=== PATIENT | female | born 1965 | race Caucasian/White ===

== ENCOUNTER 2016-10-11 12:26 | Emergency (ER) | payer MEDICAID ==
[~2016-10-11] VITALS: Ht 170.2 cm; Wt 59.0 kg
[~2016-10-11 12:26] MED LIST: ABAC1TAB3 PO; LEVO75TA3 PO; NITR50CA27 PO
[2016-10-11 12:34] VITALS: BP 123/83; PULSE 100; RESP 16; TEMP 98; O2SAT 100
[2016-10-11] MEDS ORDERED: LIDOCAINE 2%/EPINEPHrine 1:100,000 30ML MDV INFIL ONE (12:45)
--- NOTE | 2016-10-11 12:48 | PD ---
HPI Chief Complaint: Skin Problem Time Seen by Provider: 12:44 Travel History International Travel<30 days: No Contact w/Intl Traveler<30days: No Traveled to known affect area: No History of Present Illness HPI Patient is a 51-year-old female who presents him for evaluation of a skin infection. Patient states 3 days ago she started having redness and pain to the lateral aspect of her left hip. She states she has a history of staph infections. Patient was concerned because she is HIV positive. She is compliant with antiviral medications. She denies any fever, chills, nausea, vomiting, chest pain, shortness of breath. She rates her pain 8/10 and states it sort laying on it. PFSH Past Medical History Arthritis: Yes Asthma: No Atrial Fibrillation: No Autoimmune Disease: Yes (HIV + CDC count greater than 600) Blood Disorders: No Anxiety: Yes Depression: Yes Heart Rhythm Problems: No Cancer: No Cardiovascular Problems: No High Cholesterol: No Chest Pain: No Congestive Heart Failure: No COPD: No Cerebrovascular Accident: No Diabetes: No Diminished Hearing: No Endocrine: No Gastrointestinal Disorders: No GERD: No Glaucoma: No Headaches: Yes Hepatitis: Yes (HEP C) Hiatal Hernia: No Hypertension: No Immune Disorder: Yes (HIV+) Implanted Vascular Access Dvce: No Kidney Stones: Yes Musculoskeletal: No Neurologic: No Reproductive: Yes Respiratory: No Immunizations Current: Yes Migraines: Yes Myocardial Infarction: No Pancreatitis: Yes Renal Failure: No Seizures: No Sickle Cell Disease: No Sleep Apnea: No Thyroid Disease: Yes Ulcer: No ?: Not Menopausal: Yes : 4 Para: 1 : 3 Ovarian Cysts: Yes (left side) Past Surgical History AICD: No Appendectomy: No Arteriovenous Shunt: No Cardiac Surgery: No Section: Yes (X1) Cholecystectomy: No Ear Surgery: No Endocrine Surgery: No Eye Surgery: No Genitourinary Surgery: No Insulin Pump: No Joint Replacement: No Neurologic Surgery: No Oral Surgery: No Thoracic Surgery: No Other Surgery: Yes (BREST AUGMENTATION) Social History Alcohol Use: Yes (SOCIALLY) Tobacco Use: Yes Substance Use: No (QUIT JANUARY 2011) Allergies-Medications (Allergen,Severity, Reaction): Coded Allergies: Codeine (Verified Adverse Reaction, Mild, NAUSEA, 10/11/16) pt states she is not allergic but did not want to take any narcotics *MDRO Multi-Drug Resistant Organism (Verified Adverse Reaction, Unknown, ) ESBL (urine) 07/2015 & 01/2016 MRSA 2010 Reported Meds & Prescriptions Reported Meds & Active Scripts Active Macrodantin (Nitrofurantoin Macrocrystal) 50 Mg Cap 50 Mg PO DAILY Reported Levothyroxine (Levothyroxine Sodium) 75 Mcg Tab 75 Mcg PO DAILY Triumeq (Vysgywfg-Tfusjicmxmuk-Sdikglemfx) 600-50-300 Mg Tab 1 Tab PO DAILY Hazardous agent; use appropriate precautions for handling & disposal. Review of Systems Except as stated in HPI: all other systems reviewed are Neg Musculoskeletal: Positive: Myalgias, Edema, Pain Skin: Positive Change in Pigmentation, Positive Lesions Physical Exam Narrative GENERAL: Well-nourished, well-developed patient. SKIN: Warm and dry. 7 cm area of induration noted to lateral aspect of left hip. There is a 2 cm area of fluctuance noted in the anterior of that area of induration. Moderately tender and warm on palpation. HEAD: Normocephalic. EYES: No scleral icterus. No injection or drainage. NECK: Supple, trachea midline. No JVD or lymphadenopathy. CARDIOVASCULAR: Regular rate and rhythm without murmurs, gallops, or rubs. RESPIRATORY: Breath sounds equal bilaterally. No accessory muscle use. GASTROINTESTINAL: Abdomen soft, non-tender, nondistended. MUSCULOSKELETAL: No cyanosis, or edema. Full range of motion in all 4 extremities. BACK: Nontender without obvious deformity. No CVA tenderness. Data Data Last Documented VS Vital Signs Date Time Temp Pulse Resp B/P Pulse Ox O2 Delivery O2 Flow Rate FiO2 10/11/16 12:34 98.0 100 16 123/83 100 Orders Lidocai-Epi 2%-1:100,000 Inj (Xylocaine- (10/11/16 12:45) Wound Culture And Gram Stain (10/11/16 12:39) MDM Medical Decision Making Medical Screen Exam Complete: Yes Emergency Medical Condition: Yes Interpretation(s) Vital Signs Date Time Temp Pulse Resp B/P Pulse Ox O2 Delivery O2 Flow Rate FiO2 10/11/16 12:34 98.0 100 16 123/83 100 Differential Diagnosis Cellulitis versus abscess versus contusion versus abrasion versus other Narrative Course Patient is a 51-year-old female who presents emergency department for evaluation of left hip skin infection. Symptoms have been evolving over the last 3 days, getting worse per patient's report. She is currently afebrile, her vital signs are stable. She denies any IV drug use. Please see procedure report for I&D. Wound culture ordered and pending. Patient will be placed on appeared antibiotics. Wound culture is pending. Patient tolerated procedure well. She was encouraged to return to emergency department 48 hours for packing removal. She was strict return precautions. She was educated on the signs and symptoms of worsening infection. She was encouraged to return to emergency department immediately should she experience any of the symptoms. Furthermore she was encouraged follow-up with her primary doctor. Patient verbalized understanding of these instructions. Patient stable for discharge. Procedures Procedure Narrative After the risks and benefits were discussed the following procedure was performed: INCISION AND DRAINAGE OF ABSCESS: The area was prepped and was sterilely draped. A subcutaneous wheal of 2% Xylocaine with a total number 2 mL was used to anesthetize the area. The area was properly anesthetized. A number 11 scalpel was used to make a 1.5 -cm incision across the area of the abscess. Cultures were obtained. The abscess was drained an irrigated with normal saline. Quarter inch iodoform packing was placed in the wound. Sterile dressing applied. Patient advised to have packing removed in two days. Diagnosis Primary Impression: Cellulitis and abscess of other specified site Referrals: Primary Care Physician Patient Instructions: Abscess (GEN), Abscess Follow-up (ED), Abscess Incision and Drainage (ED), General Instructions Additional Instructions: Return to emergency department in 48 hours to have packing removed Return to emergency department immediately for any new or worsening symptoms Follow-up with your doctor Complete full course of antibiotics as prescribed Do not drive or operate heavy machinery while taking narcotic pain medication Med/Other Pt SpecificInfo: Prescription(s) given Scripts Clindamycin 150 Mg [id number] Mg PO Q8HR 10 Days Ref 0 Prov:Teresa Zheng 10/11/16 Oxycodone-Acetaminophen (Percocet)5-325 mg Tab1 Tab PO Q6H PRN (PAIN) #12 TAB Ref 0 Prov:Fareed Monaco MD 10/11/16 Disposition: 01 DISCHARGE HOME Condition: Stable Teresa Zheng Oct 11, 2016 12:48
[2016-10-11] MEDS ORDERED: PERC5TAB12 PO (13:14)
[2016-10-11] MEDS ORDERED: CLIN1CAP5 PO (13:18)
[2016-11-19] MEDS ORDERED: MACR100C2 PO (11:32)
[2016-11-19] MEDS ORDERED: CARB6.5S5 RIGHT EAR (11:47)
[2016-11-19] MEDS ORDERED: LEVO75TA3 PO (11:48)
[2016-11-22] MEDS ORDERED: AUGM500T7 PO (13:34)
[2016-12-03] MEDS ORDERED: VARE1PAK3 PO (11:50)
[2016-12-10] MEDS ORDERED: DIFL150T PO (12:02)
[2016-12-23] MEDS ORDERED: CLOTR1%T TOPICAL ×2 (14:23→14:47)
[2016-12-23] MEDS ORDERED: CLOB0.055 TOPICAL ×2 (14:23→14:47)
[2016-12-23] MEDS ORDERED: IMIT100T PO ×2 (14:23→14:47)
[2016-12-23] MEDS ORDERED: AUGM875T PO (14:47)
[2016-12-23] MEDS ORDERED: LACT10SO PO (14:47)
== END 2016-10-11 13:29 | disposition home or self-care (01) ==
LOC: PHEFT 12:26
DX: L02.416 Cutaneous abscess of left lower limb (principal); L03.116 Cellulitis of left lower limb; B95.62 Methicillin resistant Staphylococcus aureus infection as the cause of diseases classified elsewhere; B20 Human immunodeficiency virus [HIV] disease
CPT/HCPCS: 10061; 86403; 87070; 87186

== ENCOUNTER 2016-10-13 14:59 | Emergency (ER) | payer MEDICAID ==
[~2016-10-13] VITALS: Ht 170.2 cm; Wt 60.5 kg
[~2016-10-13 14:59] MED LIST changes: +CLIN1CAP5 PO; +PERC5TAB12 PO
[2016-10-13 15:09] VITALS: BP 116/86; PULSE 77; RESP 16; TEMP 98; O2SAT 100
[2016-10-13] MEDS ORDERED: BACT800T5 PO (16:13)
[2016-10-13] MEDS ORDERED: TRAM50TA PO (16:13)
--- NOTE | 2016-10-13 16:14 | PD ---
HPI Chief Complaint: Wound/Suture/Staple Re-Check Time Seen by Provider: 16:06 Travel History International Travel<30 days: No Contact w/Intl Traveler<30days: No Traveled to known affect area: No History of Present Illness HPI Patient is a 51-year-old female who presents emergency for reevaluation after an I&D performed 2 days ago. Patient presented with left hip cellulitis/abscess , and I&D was performed. She has been compliant with antibiotics. She denies any fever, chills, nausea, vomiting, shortness of breath or chest pain. PFSH Past Medical History Arthritis: Yes Asthma: No Atrial Fibrillation: No Autoimmune Disease: Yes (HIV + CDC count greater than 600) Blood Disorders: No Anxiety: Yes Depression: Yes Heart Rhythm Problems: No Cancer: No Cardiovascular Problems: No High Cholesterol: No Chest Pain: No Congestive Heart Failure: No COPD: No Cerebrovascular Accident: No Diabetes: No Diminished Hearing: No Endocrine: No Gastrointestinal Disorders: No GERD: No Glaucoma: No Headaches: Yes Hepatitis: Yes (HEP C) Hiatal Hernia: No Hypertension: No Immune Disorder: Yes (HIV+) Implanted Vascular Access Dvce: No Kidney Stones: Yes Musculoskeletal: No Neurologic: No Reproductive: Yes Respiratory: No Immunizations Current: Yes Migraines: Yes Myocardial Infarction: No Pancreatitis: Yes Renal Failure: No Seizures: No Sickle Cell Disease: No Sleep Apnea: No Thyroid Disease: Yes Ulcer: No Tetanus Vaccination: < 5 Years Influenza Vaccination: Yes ?: Not Menopausal: Yes : 4 Para: 1 : 3 Ovarian Cysts: Yes (left side) Past Surgical History AICD: No Appendectomy: No Arteriovenous Shunt: No Cardiac Surgery: No Section: Yes (X1) Cholecystectomy: No Ear Surgery: No Endocrine Surgery: No Eye Surgery: No Genitourinary Surgery: No Insulin Pump: No Joint Replacement: No Neurologic Surgery: No Oral Surgery: No Thoracic Surgery: No Other Surgery: Yes (BREST AUGMENTATION) Social History Alcohol Use: Yes (SOCIALLY) Tobacco Use: Yes Substance Use: No (QUIT JANUARY 2011) Allergies-Medications (Allergen,Severity, Reaction): Coded Allergies: Codeine (Verified Adverse Reaction, Mild, NAUSEA, 10/13/16) pt states she is not allergic but did not want to take any narcotics *MDRO Multi-Drug Resistant Organism (Verified Adverse Reaction, Unknown, ) ESBL (urine) 07/2015 & 01/2016 MRSA 2010 Reported Meds & Prescriptions Reported Meds & Active Scripts Active Clindamycin (Clindamycin HCl) 150 Mg Cap 300 Mg PO Q8HR 10 Days Percocet (Oxycodone-Acetaminophen) 5-325 mg Tab 1 Tab PO Q6H PRN Macrodantin (Nitrofurantoin Macrocrystal) 50 Mg Cap 50 Mg PO DAILY Reported Levothyroxine (Levothyroxine Sodium) 75 Mcg Tab 75 Mcg PO DAILY Triumeq (Hubhhuub-Dyeroajtonyd-Txwbshlqmv) 600-50-300 Mg Tab 1 Tab PO DAILY Hazardous agent; use appropriate precautions for handling & disposal. Review of Systems Except as stated in HPI: all other systems reviewed are Neg Musculoskeletal: Positive: Myalgias Physical Exam Narrative GENERAL: Well-nourished, well-developed patient. SKIN: Warm and dry. Incision to left hip, mildly erythematous, marked borders show marked regression of erythema from prior examination. Packing was in place. HEAD: Normocephalic. EYES: No scleral icterus. No injection or drainage. NECK: Supple, trachea midline. No JVD or lymphadenopathy. CARDIOVASCULAR: Regular rate and rhythm without murmurs, gallops, or rubs. RESPIRATORY: Breath sounds equal bilaterally. No accessory muscle use. GASTROINTESTINAL: Abdomen soft, non-tender, nondistended. MUSCULOSKELETAL: No cyanosis, or edema. BACK: Nontender without obvious deformity. No CVA tenderness. Data Data Last Documented VS Vital Signs Date Time Temp Pulse Resp B/P Pulse Ox O2 Delivery O2 Flow Rate FiO2 10/13/16 15:16 16 10/13/16 15:09 98.0 77 116/86 100 [facility] Medical Decision Making Medical Screen Exam Complete: Yes Emergency Medical Condition: Yes Interpretation(s) Vital Signs Date Time Temp Pulse Resp B/P Pulse Ox O2 Delivery O2 Flow Rate FiO2 10/13/16 15:16 16 10/13/16 15:09 98.0 77 16 116/86 100 Differential Diagnosis Cellulitis versus abscess versus sepsis versus other Narrative Course Patient is a 51-year-old male who presented to emergency from for reevaluation after an I&D was performed 2 days ago for an abscess to her left hip. Signs are stable, she's been compliant with antibiotic therapy however upon review of the microbiology report the bacteria is resistant to clindamycin which she was previously prescribed. At this time patient will be switched to Bactrim DS which show susceptibility. Packing was removed without any complications. Patient tolerated well. The I&D alone improved patient's symptoms. With change of antibiotic she should see complete resolution. Patient was advised however to return to emergency department if her symptoms changed or worsened. She verbalized understanding of these instructions. Patient stable for discharge. Diagnosis Primary Impression: Cellulitis and abscess of other specified site Referrals: Primary Care Physician Patient Instructions: Abscess Follow-up (ED), Abscess Incision and Drainage (ED ), General Instructions Additional Instructions: Follow-up with her primary doctor Return to emergency department immediately for any new or worsening symptoms Antibiotics have been changed to Bactrim DS. Discontinue use of clindamycin Do not drive or operate heavy machinery while taking narcotic pain medication Med/Other Pt SpecificInfo: Prescription(s) given Scripts Tramadol 50 Mg Tab50 Mg PO Q6H PRN (PAIN) #10 TAB Ref 0 Prov:Suyapa Le MD 10/13/16 Sulfamethoxazole-Trimethoprim (Bactrim DS)800-160 Mg Tab1 Tab PO BID #20 TAB Ref 0 Prov:Teresa Zheng 10/13/16 Disposition: 01 DISCHARGE HOME Condition: Stable Teresa Zheng Oct 13, 2016 16:14
[2016-10-13] MEDS ORDERED: SULFAMETHOXAZOLE-TRIMETHOPRIM DS 800-160 MG TAB PO ONE (16:15)
[2016-11-19] MEDS ORDERED: MACR100C2 PO (11:32)
[2016-11-19] MEDS ORDERED: CARB6.5S5 RIGHT EAR (11:47)
[2016-11-19] MEDS ORDERED: LEVO75TA3 PO (11:48)
[2016-11-22] MEDS ORDERED: AUGM500T7 PO (13:34)
[2016-12-03] MEDS ORDERED: VARE1PAK3 PO (11:50)
[2016-12-10] MEDS ORDERED: DIFL150T PO (12:02)
[2016-12-23] MEDS ORDERED: IMIT100T PO ×2 (14:23→14:47)
[2016-12-23] MEDS ORDERED: CLOTR1%T TOPICAL ×2 (14:23→14:47)
[2016-12-23] MEDS ORDERED: CLOB0.055 TOPICAL ×2 (14:23→14:47)
[2016-12-23] MEDS ORDERED: AUGM875T PO (14:47)
[2016-12-23] MEDS ORDERED: LACT10SO PO (14:47)
== END 2016-10-13 16:19 | disposition home or self-care (01) ==
LOC: PHEFT 14:59
DX: L02.416 Cutaneous abscess of left lower limb (principal); Z48.00 Encounter for change or removal of nonsurgical wound dressing; Z79.899 Other long term (current) drug therapy; Z21 Asymptomatic human immunodeficiency virus [HIV] infection status; B19.20 Unspecified viral hepatitis C without hepatic coma; Z72.0 Tobacco use
CPT/HCPCS: 99284

== ENCOUNTER 2016-12-20 12:14 | Emergency (ER) | payer MEDICAID ==
[~2016-12-20] VITALS: Ht 170.2 cm; Wt 60.0 kg
[~2016-12-20 12:14] MED LIST changes: -CLIN1CAP5 PO; +DIFL150T PO; -PERC5TAB12 PO; +VARE1PAK3 PO
[2016-12-20 12:18] VITALS: BP 104/71; PULSE 73; RESP 16; TEMP 98.3; O2SAT 100
[2016-12-20] MEDS ORDERED: BACT800T5 PO (12:31)
--- NOTE | 2016-12-20 12:33 | PD ---
HPI Chief Complaint: Skin Problem Time Seen by Provider: 12:26 Travel History International Travel<30 days: No Contact w/Intl Traveler<30days: No Traveled to known affect area: No History of Present Illness HPI This patient is developed some tiny papules on a few parts of her skin and wants antibiotics to cover staph. She's had staph skin infections before. She doesn't wanted to get bad where she needs incision and drainage. No fever. Symptoms severity is mild PFSH Past Medical History Hx Anticoagulant Therapy: No Arthritis: Yes Asthma: No Atrial Fibrillation: No Autoimmune Disease: Yes (HIV + CDC count greater than 600) Blood Disorders: No Anxiety: Yes Depression: Yes Heart Rhythm Problems: No Cancer: No Cardiovascular Problems: No High Cholesterol: No Chest Pain: No Congestive Heart Failure: No COPD: No Cerebrovascular Accident: No Diabetes: No Diminished Hearing: No Endocrine: No Gastrointestinal Disorders: No GERD: No Glaucoma: No Headaches: Yes Hepatitis: Yes (HEP C) Hiatal Hernia: No Hypertension: No Immune Disorder: Yes (HIV+) Implanted Vascular Access Dvce: No Kidney Stones: Yes Musculoskeletal: No Neurologic: No Reproductive: Yes Respiratory: No Immunizations Current: Yes Migraines: Yes Myocardial Infarction: No Pancreatitis: Yes Renal Failure: No Seizures: No Sickle Cell Disease: No Sleep Apnea: No Thyroid Disease: Yes Ulcer: No ?: Not Menopausal: Yes : 4 Para: 1 : 3 Ovarian Cysts: Yes (left side) Past Surgical History AICD: No Appendectomy: No Arteriovenous Shunt: No Cardiac Surgery: No Section: Yes (X1) Cholecystectomy: No Ear Surgery: No Endocrine Surgery: No Eye Surgery: No Genitourinary Surgery: No Insulin Pump: No Joint Replacement: No Neurologic Surgery: No Oral Surgery: No Thoracic Surgery: No Other Surgery: Yes (BREST AUGMENTATION) Social History Alcohol Use: Yes (SOCIALLY) Tobacco Use: Yes Substance Use: No (QUIT JANUARY 2011) Allergies-Medications (Allergen,Severity, Reaction): Coded Allergies: Codeine (Verified Adverse Reaction, Mild, NAUSEA, 12/20/16) pt states she is not allergic but did not want to take any narcotics *MDRO Multi-Drug Resistant Organism (Verified Adverse Reaction, Unknown, ) ESBL (urine) 07/2015 & 01/2016 MRSA (hip-10/11/16) & (hand-11/14/10) Reported Meds & Prescriptions Reported Meds & Active Scripts Active Diflucan (Fluconazole) 150 Mg Tab 150 Mg PO ONCE Chantix Starting Month Elroy (Varenicline) 0.5 mg X 11 & 1 mg X 42 Pack 1 Tab PO DIRECTED Levothyroxine (Levothyroxine Sodium) 75 Mcg Tab 75 Mcg PO DAILY Macrodantin (Nitrofurantoin Macrocrystal) 50 Mg Cap 50 Mg PO DAILY Reported Triumeq (Qmiiotnm-Tvpfpxxxnncf-Erwwugpolr) 600-50-300 Mg Tab 1 Tab PO DAILY Hazardous agent; use appropriate precautions for handling & disposal. Review of Systems General / Constitutional: No: Fever HENT: No: Headaches Cardiovascular: No: Chest Pain or Discomfort Physical Exam Narrative NECK: Symmetrical appearance, midline trachea. No mass or crepitus. Thyroid without enlargement, tenderness, or mass. Psych: Normal mood and affect. Normal insight and judgment. SKIN: Focused skin assessment reveals no rash or ulcers. Skin is warm and dry. Palpation shows no induration. There are a few tiny little skin colored papules that the patient points out. They look very minimal Data Data Last Documented VS Vital Signs Date Time Temp Pulse Resp B/P Pulse Ox O2 Delivery O2 Flow Rate FiO2 12/20/16 12:18 98.3 73 16 104/71 100 MDM Medical Decision Making Medical Screen Exam Complete: Yes Emergency Medical Condition: Yes Medical Record Reviewed: Yes Differential Diagnosis Papules, pustules, boil Narrative Course I have reviewed the patient's electronic medical record. I wrote patient 5 days of Bactrim DS. Recommend she follow her primary physician. Diagnosis Primary Impression: Skin papules, generalized Additional Instructions: The patient was advised to follow up with their physician and return if they worsen. Med/Other Pt SpecificInfo: Prescription(s) given Scripts Sulfamethoxazole-Trimethoprim (Bactrim DS)800-160 Mg Tab1 Tab PO BID #10 TAB Ref 0 Prov:Aneudy Hyde MD 12/20/16 Disposition: 01 DISCHARGE HOME Condition: Stable Aneudy yHde MD Dec 20, 2016 12:33
[2016-12-23] MEDS ORDERED: CLOTR1%T TOPICAL ×2 (14:23→14:47)
[2016-12-23] MEDS ORDERED: CLOB0.055 TOPICAL ×2 (14:23→14:47)
[2016-12-23] MEDS ORDERED: IMIT100T PO ×2 (14:23→14:47)
[2016-12-23] MEDS ORDERED: LACT10SO PO (14:47)
[2016-12-23] MEDS ORDERED: AUGM875T PO (14:47)
== END 2016-12-20 12:50 | disposition home or self-care (01) ==
LOC: PHED 12:14
DX: R23.8 Other skin changes (principal); B19.20 Unspecified viral hepatitis C without hepatic coma; B20 Human immunodeficiency virus [HIV] disease; Z87.442 Personal history of urinary calculi; Z72.0 Tobacco use
CPT/HCPCS: 99283

== ENCOUNTER 2017-01-28 12:33 | Emergency (ER) | payer MEDICAID ==
[~2017-01-28] VITALS: Ht 170.2 cm; Wt 63.2 kg
[~2017-01-28 12:33] MED LIST changes: +AUGM875T PO; +BACT800T5 PO; +CLOB0.055 TOPICAL; +CLOTR1%T TOPICAL; -DIFL150T PO; +IMIT100T PO; +LACT10SO PO; -NITR50CA27 PO; -VARE1PAK3 PO
[2017-01-28 12:39] VITALS: BP 131/75; PULSE 78; RESP 16; TEMP 98.1; O2SAT 100
[2017-01-28] MEDS ORDERED: NITR50CA27 PO (12:52)
[2017-01-28] MEDS ORDERED: ROBA750T PO (13:04)
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
== END 2017-01-28 13:20 | disposition home or self-care (01) ==
LOC: PHEFT 12:33
DX: M25.512 Pain in left shoulder (principal); R53.1 Weakness; M19.90 Unspecified osteoarthritis, unspecified site; F41.9 Anxiety disorder, unspecified; F32.9 Major depressive disorder, single episode, unspecified; K85.90 Acute pancreatitis without necrosis or infection, unspecified; F17.200 Nicotine dependence, unspecified, uncomplicated; Z21 Asymptomatic human immunodeficiency virus [HIV] infection status; Z79.899 Other long term (current) drug therapy
CPT/HCPCS: 99283

== ENCOUNTER 2017-10-23 15:29 | Emergency (ER) | payer MEDICAID ==
[~2017-10-23] VITALS: Ht 167.6 cm; Wt 60.0 kg
[~2017-10-23 15:29] MED LIST changes: -AUGM875T PO; -BACT800T5 PO; -CLOB0.055 TOPICAL; -CLOTR1%T TOPICAL; -IMIT100T PO; -LACT10SO PO; +NITR50CA27 PO
[2017-10-23 15:33] VITALS: BP 136/72; PULSE 70; RESP 16; TEMP 98.3; O2SAT 99
--- NOTE | 2017-10-23 15:58 | PD ---
HPI Chief Complaint: Musculoskeletal Complaint Time Seen by Provider: 15:39 Travel History International Travel<30 days: No Contact w/Intl Traveler<30days: No Traveled to known affect area: No History of Present Illness HPI 52-year-old female presents to the emergency room for evaluation of right anterior rib pain that started yesterday. Patient states she has had a mildly productive cough for the past week. The cough seems to be clearing up and is now dry. She thinks she may have broken a rib from coughing so hard. She has had broken ribs in the past and this feels the same. Pain is worsened with deep breathing and coughing. Denies any other chest pain or shortness of breath. She had chills at onset but has not had fevers or chills since then. No associated congestion. Occasional right ear pain. She has not been taking anything for her symptoms. History of hypothyroidism. PFSH Past Medical History Hx Anticoagulant Therapy: No Arthritis: Yes Asthma: No Atrial Fibrillation: No Autoimmune Disease: Yes (HIV ) Blood Disorders: No Anxiety: Yes Depression: Yes Heart Rhythm Problems: No Cancer: No Cardiovascular Problems: No High Cholesterol: No Chest Pain: No Congestive Heart Failure: No Cirrhosis: Yes COPD: No Cerebrovascular Accident: No Diabetes: No Diminished Hearing: No Endocrine: No Gastrointestinal Disorders: No GERD: No Glaucoma: No Genitourinary: Yes (frequent uti's, hx bladder spasms, states self caths several times daily) Headaches: Yes Hepatitis: Yes (HEP C, gone now) Hiatal Hernia: No Heparin Induced Thrombocytopen: No Hypertension: No Immune Disorder: Yes (HIV+) Implanted Vascular Access Dvce: No Kidney Stones: Yes Musculoskeletal: No Neurologic: No Psychiatric: Yes Reproductive: Yes Respiratory: No Immunizations Current: Yes Migraines: Yes Myocardial Infarction: No Pancreatitis: Yes Radiation Therapy: Yes ([place] FOR HEP C) Renal Failure: No Seizures: No Sickle Cell Disease: No Sleep Apnea: No Thyroid Disease: Yes Ulcer: No ?: Not Menopausal: Yes : 4 Para: 1 : 3 Ovarian Cysts: Yes (left side) Past Surgical History AICD: No Appendectomy: No Arteriovenous Shunt: No Cardiac Surgery: No Section: Yes (X1) Cholecystectomy: No Ear Surgery: No Endocrine Surgery: No Eye Surgery: No Genitourinary Surgery: No Insulin Pump: No Joint Replacement: No Neurologic Surgery: No Oral Surgery: No Thoracic Surgery: No Other Surgery: Yes (BREAST AUGMENTATION) Social History Alcohol Use: No Tobacco Use: Yes (1/2PPD) Substance Use: No (QUIT JANUARY 2011) Allergies-Medications (Allergen,Severity, Reaction): Coded Allergies: codeine (Verified Adverse Reaction, Mild, NAUSEA, 10/23/17) pt states she is not allergic but did not want to take any narcotics *MDRO Multi-Drug Resistant Organism (Verified Adverse Reaction, Unknown, ) 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 Review of Systems Except as stated in HPI: all other systems reviewed are Neg Physical Exam Narrative GENERAL: Well-nourished, well-developed female no acute distress. Afebrile. Ambulatory. SKIN: Focused skin assessment warm/dry. HEAD: Normocephalic. EYES: No scleral icterus. No injection or drainage. ENT: Mucosa pink and moist. Mild erythema without exudates. No uvular edema. No uvular, palatal, or tonsillar deviation. Airway patent. Nasal turbinates appear normal without nasal blood, purulent drainage or septal hematoma. EARS: Bilateral pinnae and external canals appear within normal limits. Bilateral tympanic membranes without erythema, dullness or perforation. NECK: Supple, trachea midline. No JVD or lymphadenopathy. CARDIOVASCULAR: Regular rate and rhythm without murmurs, gallops, or rubs. RESPIRATORY: Breath sounds equal bilaterally. No accessory muscle use. No crackles, rales, wheezes, or rhonchi. CHEST: Nontender throughout without deformity or crepitus. No retractions or use of accessory muscles. Data Data Last Documented VS Vital Signs Date Time Temp Pulse Resp B/P (MAP) Pulse Ox O2 Delivery O2 Flow Rate FiO2 10/23/17 15:43 16 2/15/18 15:33 98.3 70 136/72 (93) 99 Orders Orders Ribs, Uni (W/Exp Cxr-Min 3vw) (10/23/17 ) [facility] Medical Decision Making Medical Screen Exam Complete: Yes Emergency Medical Condition: Yes Medical Record Reviewed: Yes Differential Diagnosis Fracture, strain, sprain, contusion, costochondritis, pneumonia, bronchitis Narrative Course 52-year-old female presents to the emergency room for evaluation of right anterior chest wall pain for the past 2 days. Patient has had a severe cough for the past week. States she thinks she broke her rib from coughing so hard. Pain is worsened with deep breathing or coughing. No pain at rest. Physical exam is reassuring. There is tenderness to palpation of the right anterior rib #4. No crepitus. Lung sounds clear and equal bilaterally. 99% on room air. Chest x-ray shows nondisplaced rib fracture of the 10th rib on the right side; no cardiopulmonary disease. Patient is nontender at that area. I suspect this is an old rib fracture. She was encouraged to take deep breaths to avoid pneumonia and take ibuprofen for pain. Told to follow-up with primary care physician or return for worsening symptoms. She understands and agrees to plan. Diagnosis Primary Impression: Contusion of rib on right side Qualified Codes: S20.211A - Contusion of right front wall of thorax, initial encounter Referrals: Primary Care Physician Additional Instructions: Rest and drink plenty of fluids. Take ibuprofen with food as directed, as needed for pain. Apply ice to the affected area for 20 minutes at a time, as needed for pain and swelling. Follow-up with a primary care physician. Return to the emergency room for worsening symptoms. Disposition: 01 DISCHARGE HOME Condition: Stable Petty Lennon Oct 23, 2017 15:58
--- NOTE | 2017-10-23 17:00 | RADRPT ---
EXAM DATE/TIME: 10/23/2017 15:54 [facility] COMPARISON: No previous studies available for comparison. INDICATIONS : Patient has right side rib pain after having a persistant cough. MEDICAL HISTORY : Previous right rib fractures. SURGICAL HISTORY : Breast augmentation. ENCOUNTER: Initial ACUITY: 1 week PAIN SCORE: 9/10 LOCATION: Bilateral chest FINDINGS: Multiple views of the right ribs were performed. A nondisplaced fracture is identified through the an terolateral margin of the right 10th rib. No destructive lesions or areas of periosteal thickening ar e seen. Expiratory view of the chest is negative for pneumothorax. The mediastinal structures are m idline. CONCLUSION: Nondisplaced fracture of the right 10th rib. No acute cardiopulmonary process Carlos Smith MD on October 23, 2017 at 16:57 Board Certified Radiologist. This report was verified electronically.
== END 2017-10-23 17:25 | disposition home or self-care (01) ==
LOC: PHEFT 15:29
DX: S20.211A Contusion of right front wall of thorax, initial encounter (principal); B20 Human immunodeficiency virus [HIV] disease; M19.90 Unspecified osteoarthritis, unspecified site; K74.60 Unspecified cirrhosis of liver; E03.9 Hypothyroidism, unspecified; F32.9 Major depressive disorder, single episode, unspecified; F41.9 Anxiety disorder, unspecified; F17.210 Nicotine dependence, cigarettes, uncomplicated; Z86.19 Personal history of other infectious and parasitic diseases; Z87.442 Personal history of urinary calculi; Z88.5 Allergy status to narcotic agent; Z79.899 Other long term (current) drug therapy
CPT/HCPCS: 71101; 99283

== ENCOUNTER 2018-01-04 06:58 | Emergency (ER) | payer SELFPAY ==
[~2018-01-04] VITALS: Ht 167.6 cm; Wt 60.7 kg
[2018-01-04 07:05] VITALS: BP 117/75; PULSE 89; RESP 16; TEMP 98.5; O2SAT 100
[2018-01-04] MEDS ORDERED: CEPH-460 PO (07:23)
[2018-01-04] MEDS ORDERED: BACT800T5 PO (07:23)
--- NOTE | 2018-01-04 07:23 | PD ---
HPI Chief Complaint: Skin Problem Time Seen by Provider: 07:00 Travel History International Travel<30 days: No Contact w/Intl Traveler<30days: No Traveled to known affect area: No History of Present Illness HPI 52 yo F c/o L gluteus pain, swelling, erythema x 1-2 days [place]. erythema about the L chest wall also noted. Swelling of the right submandibular lymph node is also noted. The patient reports history of HIV. Her last CD4 count was over 600 she states. Her viral load is nondetectable. She is compliant with antiretroviral medications. Associated symptoms include some pain with swallowing due. No difficulty breathing. PFSH Past Medical History Hx Anticoagulant Therapy: No Arthritis: Yes Asthma: No Atrial Fibrillation: No Autoimmune Disease: Yes (HIV ) Blood Disorders: No Anxiety: Yes Depression: Yes Heart Rhythm Problems: No Cancer: No Cardiovascular Problems: No High Cholesterol: No Chest Pain: No Congestive Heart Failure: No Cirrhosis: Yes COPD: No Cerebrovascular Accident: No Diabetes: No Diminished Hearing: No Endocrine: No Gastrointestinal Disorders: No GERD: No Glaucoma: No Genitourinary: Yes (frequent uti's, hx bladder spasms, states self caths several times daily) Headaches: Yes Hepatitis: Yes (HEP C, gone now) Hiatal Hernia: No Heparin Induced Thrombocytopen: No Hypertension: No Immune Disorder: Yes (HIV+) Implanted Vascular Access Dvce: No Kidney Stones: Yes Musculoskeletal: No Neurologic: No Psychiatric: Yes Reproductive: Yes Respiratory: No Immunizations Current: Yes Migraines: Yes Myocardial Infarction: No Pancreatitis: Yes Radiation Therapy: Yes ([place] FOR HEP C) Renal Failure: No Seizures: No Sickle Cell Disease: No Sleep Apnea: No Thyroid Disease: Yes Ulcer: No ?: Not Menopausal: Yes : 4 Para: 1 : 3 Ovarian Cysts: Yes (left side) Past Surgical History AICD: No Appendectomy: No Arteriovenous Shunt: No Cardiac Surgery: No Section: Yes (X1) Cholecystectomy: No Ear Surgery: No Endocrine Surgery: No Eye Surgery: No Genitourinary Surgery: No Insulin Pump: No Joint Replacement: No Neurologic Surgery: No Oral Surgery: No Thoracic Surgery: No Other Surgery: Yes (BREAST AUGMENTATION) Social History Alcohol Use: No Tobacco Use: Yes (1/2PPD) Substance Use: No (QUIT JANUARY 2011) Allergies-Medications (Allergen,Severity, Reaction): Coded Allergies: codeine (Verified Adverse Reaction, Mild, NAUSEA, 01/04/18) pt states she is not allergic but did not want to take any narcotics *MDRO Multi-Drug Resistant Organism (Verified Adverse Reaction, Unknown, ) ESBL (urine) 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 Review of Systems General / Constitutional: No: Fever Eyes: No: Diploplia HENT: No: Headaches Cardiovascular: No: Chest Pain or Discomfort Respiratory: No: Cough Physical Exam Narrative GENERAL: 52-year-old female pleasant well-nourished well-developed distress Vital Signs Date Time Temp Pulse Resp B/P (MAP) Pulse Ox O2 Delivery O2 Flow Rate FiO2 01/04/18 07:05 98.5 89 16 117/75 (89) 100 SKIN: Warm and dry. There is approximately 3 cm round area of erythema induration and tenderness overlying the region of the left gluteus consistent with cellulitis. There is no fluctuance. Signed minimal left sided and drainage. NECK: There is minimal tenderness in the submandibular left node on the left side without induration or suggestion of Jose F's angina. HEAD: Normocephalic. EYES: No scleral icterus. No injection or drainage. CARDIOVASCULAR: Regular rate and rhythm without murmurs, gallops, or rubs. RESPIRATORY: Breath sounds equal bilaterally. No accessory muscle use. GASTROINTESTINAL: Abdomen soft, non-tender, nondistended. MUSCULOSKELETAL: No cyanosis, or edema. BACK: Nontender without obvious deformity. No CVA tenderness. Data Data Last Documented VS Vital Signs Date Time Temp Pulse Resp B/P (MAP) Pulse Ox O2 Delivery O2 Flow Rate FiO2 01/04/18 07:05 98.5 89 16 117/75 (89) 100 Orders Orders Sulfamet-Trimeth Ds 800-160 Mg (Bactrim (01/04/18 07:30) Cephalexin (Keflex) (01/04/18 07:30) MDM Medical Decision Making Medical Screen Exam Complete: Yes Emergency Medical Condition: Yes Medical Record Reviewed: Yes Differential Diagnosis Cellulitis, abscess, pharyngitis Narrative Course Patient is HIV with the CD4 count of over 600 and other words immunocompetent. Scripts as below for treatment of cellulitis. Tender right neck lymph node is of indeterminate significant with a normal oropharyngeal exam otherwise however Keflex Bactrim likely cover any potential sharon. Diagnosis Primary Impression: Cellulitis Qualified Codes: L03.317 - Cellulitis of buttock Referrals: Primary Care Physician call for appointment Med/Other Pt SpecificInfo: Prescription(s) given Scripts Sulfamethoxazole-Trimethoprim (Bactrim DS) 800-160 Mg Tab 1 TAB PO BID for Infection, #20 TAB 0 Refills Prov: Rojas Holt MD 01/04/18 Cephalexin (Keflex) 500 Mg Cap 500 MG PO Q8H for Infection, #30 CAP 0 Refills Prov: Rojas Holt MD 01/04/18 Disposition: 01 DISCHARGE HOME Condition: Stable Rojas Holt MD Jan 04, 2018 07:23
[2018-01-04] MEDS ORDERED: CEPHALEXIN MONOHYDRATE 500 MG CAP PO ONE (07:30)
[2018-01-04] MEDS ORDERED: SULFAMETHOXAZOLE-TRIMETHOPRIM DS 800-160 MG TAB PO ONE (07:30)
== END 2018-01-04 07:35 | disposition home or self-care (01) ==
LOC: PHED 06:58
DX: L03.317 Cellulitis of buttock (principal); Z21 Asymptomatic human immunodeficiency virus [HIV] infection status; F41.9 Anxiety disorder, unspecified; F32.9 Major depressive disorder, single episode, unspecified; M19.90 Unspecified osteoarthritis, unspecified site; K74.60 Unspecified cirrhosis of liver; Z86.19 Personal history of other infectious and parasitic diseases; Z87.442 Personal history of urinary calculi; Z87.19 Personal history of other diseases of the digestive system
CPT/HCPCS: 99283

== ENCOUNTER 2018-01-26 17:02 | Emergency (ER) | payer OTHER ==
[~2018-01-26] VITALS: Ht 170.2 cm; Wt 62.2 kg
[~2018-01-26 17:02] MED LIST changes: +BACT800T5 PO; +CEPH-460 PO
[2018-01-26 17:03] VITALS: BP 111/69; PULSE 76; RESP 18; TEMP 98.3
--- NOTE | 2018-01-26 17:49 | PD ---
HPI Chief Complaint: Edema Time Seen by Provider: 17:31 Travel History International Travel<30 days: No Contact w/Intl Traveler<30days: No Traveled to known affect area: No History of Present Illness HPI 52yo F with PMH of HIV on medication CD 4 count 600 here with c/o bilateral ankle swelling. Said she has been standing a lot lately and has swelling. Denies any calf pain, trauma, fall, fever, chest pain, sob, n/v, abdominal pain , focal weakness or numbness. Pt said she had slight dizziness when she got up from standing but that had resolved. PFSH Past Medical History Hx Anticoagulant Therapy: No Arthritis: Yes Asthma: No Atrial Fibrillation: No Autoimmune Disease: Yes (HIV ) Blood Disorders: No Anxiety: Yes Depression: Yes Heart Rhythm Problems: No Cancer: No Cardiovascular Problems: No High Cholesterol: No Chest Pain: No Congestive Heart Failure: No Cirrhosis: Yes COPD: No Cerebrovascular Accident: No Diabetes: No Diminished Hearing: No Endocrine: No Gastrointestinal Disorders: No GERD: No Glaucoma: No Genitourinary: Yes (frequent uti's, hx bladder spasms, states self caths several times daily) Headaches: Yes Hepatitis: Yes (HEP C, gone now) Hiatal Hernia: No Heparin Induced Thrombocytopen: No Hypertension: No Immune Disorder: Yes (HIV+) Implanted Vascular Access Dvce: No Kidney Stones: Yes Musculoskeletal: No Neurologic: No Psychiatric: Yes Reproductive: Yes Respiratory: No Immunizations Current: Yes Migraines: Yes Myocardial Infarction: No Pancreatitis: Yes Radiation Therapy: Yes ([place] FOR HEP C) Renal Failure: No Seizures: No Sickle Cell Disease: No Sleep Apnea: No Thyroid Disease: Yes Ulcer: No Menopausal: Yes : 4 Para: 1 : 3 Ovarian Cysts: Yes (left side) Past Surgical History AICD: No Appendectomy: No Arteriovenous Shunt: No Cardiac Surgery: No Section: Yes (X1) Cholecystectomy: No Ear Surgery: No Endocrine Surgery: No Eye Surgery: No Genitourinary Surgery: No Gynecologic Surgery: Yes () Insulin Pump: No Joint Replacement: No Neurologic Surgery: No Oral Surgery: No Thoracic Surgery: No Other Surgery: Yes (BREAST AUGMENTATION) Social History Alcohol Use: No Tobacco Use: Yes (1/2PPD) Substance Use: No (QUIT JANUARY 2011) Allergies-Medications (Allergen,Severity, Reaction): Coded Allergies: codeine (Verified Adverse Reaction, Mild, NAUSEA, 01/26/18) pt states she is not allergic but did not want to take any narcotics *MDRO Multi-Drug Resistant Organism (Verified Adverse Reaction, Unknown, ) ESBL (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 Review of Systems Except as stated in HPI: all other systems reviewed are Neg Physical Exam Narrative GENERAL: 52yo F not in distress. SKIN: Focused skin assessment warm/dry. HEAD: Atraumatic. Normocephalic. EYES: Pupils equal and round. No scleral icterus. No injection or drainage. ENT: No nasal bleeding or discharge. Mucous membranes pink and moist. NECK: Trachea midline. No JVD. CARDIOVASCULAR: Regular rate and rhythm. No murmur appreciated. RESPIRATORY: No accessory muscle use. Clear to auscultation. Breath sounds equal bilaterally. GASTROINTESTINAL: Abdomen soft, non-tender, nondistended. Hepatic and splenic margins not palpable. MUSCULOSKELETAL: Bilateral lower extremity: Mild edema bilateral ankle and tib/ fib. No calf tenderness. DP 2+. Sensation intact. NEUROLOGICAL: Awake and alert. No obvious cranial nerve deficits. Motor grossly within normal limits. Normal speech. PSYCHIATRIC: Appropriate mood and affect; insight and judgment normal. Data Data Last Documented VS Vital Signs Date Time Temp Pulse Resp B/P (MAP) Pulse Ox O2 Delivery O2 Flow Rate FiO2 01/26/18 17:36 Room Air 01/26/18 17:03 98.3 76 18 111/69 (83) Orders Orders Comprehensive Metabolic Panel (01/26/18 17:41) Electrocardiogram (01/26/18 ) Urinalysis - C+S If Indicated (01/26/18 17:41) Labs Laboratory Tests Test 01/26/18 17:40 01/26/18 17:50 Urine Color YELLOW Urine Turbidity CLEAR Urine pH 7.0 Urine Specific [place] 1.010 Urine Protein NEG mg/dL Urine Glucose (UA) NEG mg/dL Urine Ketones NEG mg/dL Urine Occult Blood NEG Urine Nitrite NEG Urine Bilirubin NEG Urine Urobilinogen 0.2 MG/DL Urine Leukocyte Esterase NEG Urine Squamous Epithelial Cells 0-5 /hpf Microscopic Urinalysis Comment CULT NOT INDICATED Blood Urea Nitrogen 19 MG/DL Creatinine 0.89 MG/DL Random Glucose 68 MG/DL Total Protein 7.6 GM/DL Albumin 3.8 GM/DL Calcium Level 8.9 MG/DL Alkaline Phosphatase 64 U/L Aspartate Amino Transf (AST/SGOT) 16 U/L Alanine Aminotransferase (ALT/SGPT) 20 U/L Total Bilirubin 0.2 MG/DL Sodium Level 141 MEQ/L Potassium Level 4.0 MEQ/L Chloride Level 108 MEQ/L Carbon Dioxide Level 30.0 MEQ/L Anion Gap 3 MEQ/L Estimat Glomerular Filtration Rate 67 ML/MIN [facility] Medical Decision Making Medical Screen Exam Complete: Yes Emergency Medical Condition: Yes Interpretation(s) EKG: Sinus bradycardia at 58bpm. Normal axis. No ST segment elevation or depression. Differential Diagnosis vein insufficiency vs. liver disease vs. kidney disease Narrative Course 52yo F with bilateral lower extremity edema. Pt has no calf tenderness. UA negative. Liver enzymes normal. Creatinine normal. Pt is mildly dehydrated but has no symptoms now and tolerating PO so ask to hydrate orally. Glucose 68 , pt given juice. Return precautions given. Diagnosis Primary Impression: Edema Qualified Codes: R60.9 - Edema, unspecified Patient Instructions: General Instructions Departure Forms: Tests/Procedures Additional Instructions: Please follow up with your primary care physician in 2-3 days. Return to the ED if symptoms worsen. Med/Other Pt SpecificInfo: No Change to Meds Disposition: 01 DISCHARGE HOME Condition: Stable Gabby Suero DO January 26, 2018 17:49
[2018-01-26 18:04] LABS: BILIRUBIN, URINE NEG (NEG); BLOOD, URINE NEG (NEG); GLUCOSE,URINE NEG (NEG); KETONE, URINE NEG (NEG); NITRITE,URINE NEG (NEG); URINE COLOR YELLOW (YELLW/STRAW); URINE LEUKOCYTE ESTERASE NEG (NEG)
[2018-01-26 18:11] LABS: SQUAMOUS EPITHELIAL CELL URINE 0-5 /hpf (0-5)
[2018-01-26 18:12] LABS: CHLORIDE 108 MEQ/L (98-107); SODIUM (NA) 141 MEQ/L (136-145)
[2018-01-26 18:16] LABS: CALCIUM 8.9 MG/DL (8.5-10.1)
[2018-01-26 18:17] LABS: ALBUMIN 3.8 GM/DL (3.4-5.0); BLOOD UREA NITROGEN 19 MG/DL (7-18); GLUCOSE,RANDOM 68 MG/DL (74-106)
[2018-01-26 18:20] LABS: ALT (GPT) 20 U/L (10-53); AST (GOT) 16 U/L (15-37); CREATININE 0.89 MG/DL (0.50-1.00); GLOMERULAR FILTRATION RATE 67 ML/MIN (>89)
[2018-01-26 18:21] LABS: TOTAL BILIRUBIN ADULT 0.2 MG/DL (0.2-1.0)
[2018-01-26 18:22] LABS: TOTAL PROTEIN 7.6 GM/DL (6.4-8.2)
[2018-01-26 18:23] LABS: ALKALINE PHOSPHATASE 64 U/L (45-117)
[2018-01-26 19:07] VITALS: BP 110/75
--- NOTE | 2018-01-27 16:49 | EKG ---
Date Performed: 01/26/2018 Time Performed: 17:53:03 PTAGE: 52 years EKG: SINUS BRADYCARDIA BORDERLINE ECG PREVIOUS TRACING : 05/15/2015 19.59 Since the previous tracing, no significant change noted DOCTOR: Qamar Falcon Interpretating Date/Time 01/27/2018 16:47:40
== END 2018-01-26 19:08 | disposition home or self-care (01) ==
LOC: PHED 17:02
DX: M25.472 Effusion, left ankle (principal); M25.471 Effusion, right ankle; R00.1 Bradycardia, unspecified; R60.9 Edema, unspecified; F41.8 Other specified anxiety disorders; K74.60 Unspecified cirrhosis of liver; N32.89 Other specified disorders of bladder; F17.210 Nicotine dependence, cigarettes, uncomplicated; Z87.442 Personal history of urinary calculi; Z21 Asymptomatic human immunodeficiency virus [HIV] infection status; Z88.5 Allergy status to narcotic agent
CPT/HCPCS: 80053; 81001; 93005; 99284